=== PATIENT | female | born 1980 | race Caucasian/White ===

== ENCOUNTER 2017-03-23 01:54 | Emergency (ER) | payer OTHER ==
[~2017-03-23] VITALS: Ht 152.4 cm; Wt 57.2 kg
[~2017-03-23 01:54] MED LIST: PARO40TA1 PO
[2017-03-23 02:05] VITALS: BP 115/84
[2017-03-23] MEDS ORDERED: KETOROLAC 30 MG/ML VIAL IVP ONE (03:00)
[2017-03-23] MEDS ORDERED: NACL 0.9% 1,000 ML IV ONE (03:00)
[2017-03-23 04:14] VITALS: BP 111/73
== END 2017-03-23 04:15 | disposition home or self-care (01) ==
LOC: MED 01:54
DX: F15.93 Other stimulant use, unspecified with withdrawal (principal); F14.23 Cocaine dependence with withdrawal
CPT/HCPCS: 36415; 87804; 96361; 96374; 99284; J1885; J7030

== ENCOUNTER 2018-10-22 07:49 | Emergency (ER) | payer OTHER ==
[~2018-10-22] VITALS: Ht 149.9 cm; Wt 59.0 kg
[2018-10-22 07:50] VITALS: BP 96/59
--- NOTE | 2018-10-22 08:06 | NUR ---
PT ANA LUISA WAS FOUND FACE DOWN BY [place] [employer], PER EMS, PT RAN FROM PD INTO AN APARTMENT COMPLEX AND INTO A STRANGER'S HOME. WHEN EMS ARRIVED PT WAS ALTERED. UPON ARRIVAL TO ED PT WAS ALERT AND ORIENTED TO NAME, PLACE AND TIME. UNABLE TO RECALL EVENT;PT STATES LAST THING SHE REMEMBERS IS WALKING TO WORK. PT STATES SHE HAS HX OF SEIZURES AND HAD A CHANGE IN MEDICATION BUT DOES NOT RECALL THE NAME OF MEDICATION. SEIZURE PRECAUTIONS INITIATED; PADDED SIDERAILS, GURNEY LOCKED AND IN LOWEST POSITION. IV LINE TO LT FOREARM STARTED IN ROUTE. ERMD TO EVALUATE PT.
[2018-10-22] MEDS ORDERED: OXcarbazepine 150 MG TAB PO SCH (08:25)
--- NOTE | 2018-10-22 08:30 | NUR ---
Patient appears to be resting comfortably in bed. Vital Signs within normal limits. Respirations even and unlabored.
[2018-10-22 08:45] VITALS: BP 102/74
--- NOTE | 2018-10-22 08:46 | NUR ---
Patient discharged with v/s stable. Written and verbal after care instructions given and explained. Patient verbalized understanding. Ambulatory with steady gait. All questions addressed prior to discharge. Advised to follow up with PMD.
== END 2018-10-22 08:46 | disposition home or self-care (01) ==
LOC: MED 07:49
DX: G40.909 Epilepsy, unspecified, not intractable, without status epilepticus (principal); Z79.899 Other long term (current) drug therapy; Z91.14 Patient's other noncompliance with medication regimen
CPT/HCPCS: 99283